=== PATIENT | female | born 2000 | race Caucasian/White ===

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

== ENCOUNTER 2022-04-12 09:24 | Inpatient (IN) | payer MEDICAID ==
[~2022-04-12 09:24] MED LIST: Bupivacaine 0.25% 10 ML SDV ONE; Lidocaine 1% 10 ML MDV ONE
[2022-04-12] MEDS ORDERED: Sodium Chloride 0.9% 10 ML Syringe FLUSH PRN (09:59)
[2022-04-12] MEDS ORDERED: Nalbuphine HCl 10 MG/ 1ML Amp IVPUSH PRN (09:59)
[2022-04-12] MEDS ORDERED: Ondansetron 4 MG/2 ML SDV IVPUSH PRN (09:59)
[2022-04-12] MEDS ORDERED: Oxytocin/Lactated Ringers 10 UNIT/1,000 ML BAG IV SCH (10:00)
[2022-04-12] MEDS: Lactated Ringers 1,000 ML IV SCH ×2 (10:53→11:52)
[2022-04-12 10:54] LABS: ESTIMATED GFR > 60 mL/min (>60)
[2022-04-12] MEDS ORDERED: Bupivacaine/fentaNYL/NS 100 ML Bag EPIDUR PRN (11:40)
[2022-04-12] MEDS ORDERED: ePHEDrine 50 MG/ML SDV IVPUSH PRN (11:40)
[2022-04-12] MEDS ORDERED: fentaNYL 100 MCG/2 ML SDV EPIDUR PRN (11:40)
[2022-04-12] MEDS ORDERED: diphenhydrAMINE 50 MG/ML SDV IVPUSH PRN (11:40)
[2022-04-12] MEDS: Labetalol 100 MG Tab PO SCH ×2 (11:55→19:05)
[2022-04-12] MEDS ORDERED: Labetalol 100 MG Tab PO SCH (15:00)
[2022-04-12] MEDS ORDERED: Benzocaine/Menthol 20%-0.5% Spray 78 GM Cannister TOP PRN (17:14)
[2022-04-12] MEDS ORDERED: Witch Hazel Medicated Pads 40/Jar TOP PRN (17:14)
[2022-04-12] MEDS ORDERED: Docusate Sodium 100 MG Cap PO PRN (17:14)
[2022-04-12] MEDS ORDERED: Acetaminophen 325 MG Tab PO PRN (17:14)
[2022-04-12] MEDS: Ibuprofen 600 MG Tab PO PRN (18:08)
[2022-04-12] MEDS ORDERED: Sodium Chloride 0.9% 10 ML Syringe FLUSH SCH (21:00)
[2022-04-13] MEDS: Ibuprofen 600 MG Tab PO PRN ×2 (03:28→10:25)
[2022-04-13] MEDS ORDERED: Prenatal Multivitamin with Calcium/Folic Acid/Iron Tab PO SCH (09:00)
[2022-04-14 09:35] VITALS: BP 131/92; PULSE 75
== END 2022-04-14 09:30 | disposition home or self-care (01) | DRG 807 ==
LOC: JD.OBCHECK 09:24 → JD.OB 09:28 → JD.OBCHECK 13:00 → OBSVTOIN 15:16 → JD.OB 15:17
PROVIDERS: ADMIT Obstetrics & Gynecology; ATTEND Obstetrics & Gynecology
PROC: 10E0XZZ Delivery of Products of Conception, External Approach (ICD-10-PCS; principal; 2022-04-12)
PROC: 3E0R3BZ Introduction of Anesthetic Agent into Spinal Canal, Percutaneous Approach (ICD-10-PCS; principal; 2022-04-12)
DX: O16.4 Unspecified maternal hypertension, complicating childbirth (principal); Z37.0 Single live birth; Z3A.38 38 weeks gestation of pregnancy; O99.214 Obesity complicating childbirth
CPT/HCPCS: 01967; 36415; 51701; 59025; 59409; 82565; 82570; 83615; 84156; 84450; 84460; 84520; 84550; 85025; 86592; A9270-GY; J3010; J3490; J7120

== ENCOUNTER 2022-04-28 23:10 | Emergency (ER) | payer MEDICAID ==
[2022-04-28 23:22] VITALS: BP 126/73; PULSE 88
== END 2022-04-29 01:16 | disposition home or self-care (01) ==
LOC: JD.ED 23:10
DX: S93.402A Sprain of unspecified ligament of left ankle, initial encounter (principal); Z88.0 Allergy status to penicillin; Z88.5 Allergy status to narcotic agent; Z88.1 Allergy status to other antibiotic agents; Z88.8 Allergy status to other drugs, medicaments and biological substances; X50.1XXA Overexertion from prolonged static or awkward postures, initial encounter
CPT/HCPCS: 73610-26-LT; 73610-LT; 73630-26-LT; 73630-LT; 99282; 99283-25

== ENCOUNTER 2023-07-04 02:59 | Inpatient (IN) | payer MEDICAID ==
[2023-07-04] MEDS: Lactated Ringers 1,000 ML IV SCH ×3 (04:00→05:42)
[2023-07-04] MEDS ORDERED: Nalbuphine 10 MG/0.5 ML Syringe IVPUSH PRN (04:06)
[2023-07-04] MEDS ORDERED: Ondansetron 4 MG/2 ML SDV IVPUSH PRN (04:06)
[2023-07-04] MEDS ORDERED: Lidocaine 1% 50 ML MDV INJECT PRN (04:06)
[2023-07-04] MEDS ORDERED: Sodium Chloride 0.9% 10 ML Syringe FLUSH PRN (04:06)
[2023-07-04] MEDS ORDERED: Oxytocin/Lactated Ringers 10 UNIT/1,000 ML BAG IV SCH (04:15)
[2023-07-04 04:16] LABS: BASOPHILS ABSOLUTE AUTO 0.04 K/mm3 (0.01-0.08); BASOPHILS PERCENT AUTO 0.2 % (0.1-1.2); EOSINOPHILS ABSOLUTE AUTO 0.32 K/mm3 (0.04-0.36); EOSINOPHILS PERCENT AUTO 1.9 (0.7-5.8); HEMATOCRIT 38.4 % (34.1-44.9); HEMOGLOBIN 12.7 gm/dl (11.2-15.7); IMMATURE GRAN ABSOLUTE AUTO 0.08 K/mm3 (0.00-0.10); IMMATURE GRAN PERCENT AUTO 0.5 % (<=1.0); LYMPHOCYTES ABSOLUTE AUTO 2.78 K/mm3 (1.18-3.74); LYMPHOCYTES PERCENT AUTO 16.4 % (19.3-51.7); MEAN CORPUSCULAR HGB CONC 33.1 g/dl (32.2-35.5); MEAN CORPUSCULAR VOLUME 90.8 fl (79.4-94.8); MEAN PLATELET VOLUME 12.8 fl (9.4-12.3); MONOCYTES PERCENT AUTO 8.3 % (4.7-12.5); NEUTROPHILS ABSOLUTE AUTO 12.29 K/mm3 (1.56-6.13); NEUTROPHILS PERCENT AUTO 72.7 % (34.0-71.1); PLATELET COUNT,PLT 156 K/mm3 (182-369); RED BLOOD CELL COUNT 4.23 M/mm3 (3.98-5.22); WHITE BLOOD CELL COUNT,WBC 16.91 K/mm3 (3.98-10.04)
[2023-07-04] MEDS ORDERED: Clindamycin Phosphate in D5W 900 MG in Premix Bag 1 BAG IV SCH ×2 (04:30)
[2023-07-04] MEDS ORDERED: ePHEDrine 50 MG/ML SDV IVPUSH PRN (04:37)
[2023-07-04] MEDS ORDERED: fentaNYL 100 MCG/2 ML SDV EPIDUR PRN (04:37)
[2023-07-04] MEDS ORDERED: diphenhydrAMINE 50 MG/ML SDV IVPUSH PRN (04:37)
[2023-07-04] MEDS ORDERED: Bupivacaine/fentaNYL/NS 100 ML Bag EPIDUR PRN (04:37)
[2023-07-04] MEDS ORDERED: fentaNYL 100 MCG/2 ML SDV ONE (04:39)
[2023-07-04] MEDS ORDERED: Bupivacaine 0.25% 10 ML SDV ONE (06:00)
[2023-07-04] MEDS ORDERED: Lidocaine 1% 10 ML MDV ONE (06:00)
[2023-07-04] MEDS ORDERED: Benzocaine/Menthol 20%-0.5% Spray 78 GM Cannister TOP PRN (07:33)
[2023-07-04] MEDS ORDERED: Witch Hazel Medicated Pads 40/Jar TOP PRN (07:33)
[2023-07-04] MEDS ORDERED: Sodium Chloride 0.9% 10 ML Syringe FLUSH SCH (09:00)
[2023-07-04] MEDS: Ibuprofen 600 MG Tab PO SCH ×4 (10:46→21:55)
[2023-07-04] MEDS: Acetaminophen 325 MG Tab PO PRN (21:54)
[2023-07-04 23:17] LABS: GROUP B STREP BY PCR NEGATIVE (NEGATIVE)
[2023-07-05] MEDS: Acetaminophen 325 MG Tab PO PRN (04:40)
[2023-07-05] MEDS: Ibuprofen 600 MG Tab PO SCH ×3 (04:41→17:29)
[2023-07-05] MEDS: Ibuprofen 600 MG Tab PO PRN (19:05)
[2023-07-06] MEDS: Ibuprofen 600 MG Tab PO PRN (03:22)
[2023-07-06 09:57] VITALS: BP 115/84; PULSE 96
== END 2023-07-06 10:15 | disposition home or self-care (01) | DRG 807 ==
LOC: JD.OBCHECK 02:59 → JD.OB 03:02 → JD.OBCHECK 03:50 → JD.OB 03:50 → OBSVTOIN 07:13 → JD.OB 07:14
PROVIDERS: ADMIT Obstetrics & Gynecology; ATTEND Obstetrics & Gynecology
PROC: 10E0XZZ Delivery of Products of Conception, External Approach (ICD-10-PCS; principal; 2023-07-04)
PROC: 3E0R3BZ Introduction of Anesthetic Agent into Spinal Canal, Percutaneous Approach (ICD-10-PCS; 2023-07-04)
PROC: 00HU33Z Insertion of Infusion Device into Spinal Canal, Percutaneous Approach (ICD-10-PCS; 2023-07-04)
DX: O60.14X0 Preterm labor third trimester with preterm delivery third trimester, not applicable or unspecified (principal); Z37.0 Single live birth; O70.0 First degree perineal laceration during delivery; O99.344 Other mental disorders complicating childbirth; F41.9 Anxiety disorder, unspecified; F32.A Depression, unspecified; O99.52 Diseases of the respiratory system complicating childbirth; Z3A.36 36 weeks gestation of pregnancy; Z88.1 Allergy status to other antibiotic agents; Z88.5 Allergy status to narcotic agent; Z88.0 Allergy status to penicillin; Z91.09 Other allergy status, other than to drugs and biological substances; J45.909 Unspecified asthma, uncomplicated; Z90.89 Acquired absence of other organs; Z79.899 Other long term (current) drug therapy; Z79.82 Long term (current) use of aspirin
CPT/HCPCS: 01967; 36415; 51701; 59025; 59409; 85025; 86592; 87653; A9270-GY; J2405; J2590; J3010; J3490; J7120

== ENCOUNTER 2024-07-05 09:42 | Emergency (ER) | payer SELFPAY ==
[2024-07-05 09:51] VITALS: BP 159/83; PULSE 135
[2024-07-05 10:29] LABS: BASOPHILS ABSOLUTE AUTO 0.1 K/mm3 (0.0-0.2); BASOPHILS PERCENT AUTO 0.6 % (0.0-1.0); EOSINOPHILS PERCENT AUTO 0.1 % (0.0-6.0); HEMATOCRIT 46.1 % (37.0-47.0); HEMOGLOBIN 15.1 gm/dl (12.0-16.0); IMMATURE GRAN ABSOLUTE AUTO 0.04 K/mm3 (0.00-0.05); IMMATURE GRAN PERCENT AUTO 0.4 % (0.0-0.4); LYMPHOCYTES ABSOLUTE AUTO 1.3 K/mm3 (1.0-4.8); LYMPHOCYTES PERCENT AUTO 12.9 % (24.0-44.0); MEAN CORPUSCULAR HGB CONC 32.8 g/dl (32.0-36.0); MEAN CORPUSCULAR VOLUME 91.5 fl (83.0-99.0); MONOCYTES ABSOLUTE AUTO 0.6 K/mm3 (0.0-0.8); MONOCYTES PERCENT AUTO 6.1 % (0.0-8.0); NEUTROPHILS ABSOLUTE AUTO 8.1 K/mm3 (1.8-7.7); NEUTROPHILS PERCENT AUTO 79.9 % (41.0-71.0); PLATELET COUNT,PLT 181 K/mm3 (150-400); RED BLOOD CELL COUNT 5.04 M/mm3 (4.10-5.30); WHITE BLOOD CELL COUNT,WBC 10.08 K/mm3 (3.9-11.3)
[2024-07-05 10:52] LABS: BARBITURATE SCREEN,URINE NEGATIVE (CUTOFF=200); BENZODIAZEPINES SCREEN,URINE NEGATIVE (CUTOFF=150); BUPRENORPHINE SCREEN,URINE NEGATIVE (CUTOFF=10); METHADONE SCREEN, URINE NEGATIVE (CUTOFF=200); METHAMPHETAMINES SCREEN, URINE NEGATIVE (CUTOFF=500); OXYCODONE SCREEN,URINE NEGATIVE (CUT0FF=100); THC SCREEN,URINE 20 NG/ML PRESUMPTIVE POSITIVE (CUTOFF=50)
[2024-07-05 10:58] LABS: A/G RATIO 1.3 (1-2); ALBUMIN 4.5 g/dl (3.4-5.0); ANION GAP 19.9 (5-15); BILIRUBIN TOTAL 0.9 mg/dL (0.2-1.0); BUN/CREATININE RATIO 17.1 (14-18); CALCIUM 9.6 mg/dL (8.5-10.1); CREATININE 0.7 mg/dL (0.55-1.02); EST CRCL DRUG DOSING (CG) 119.01 mL/min; POTASSIUM,K 3.9 mEq/L (3.5-5.1); PROTEIN TOTAL,TP 8.1 g/dl (6.4-8.2); TSH 0.747 uIU/mL (0.358-3.74)
[2024-07-05 10:58] LABS: AMPHETAMINES SCREEN, URINE NEGATIVE (CUTOFF=500)
== END 2024-07-05 12:51 | disposition home or self-care (01) ==
LOC: JD.ED 09:42
DX: F32.A Depression, unspecified (principal); F17.210 Nicotine dependence, cigarettes, uncomplicated; E66.9 Obesity, unspecified; Z86.16 Personal history of COVID-19; Z88.8 Allergy status to other drugs, medicaments and biological substances; Z88.0 Allergy status to penicillin; Z88.5 Allergy status to narcotic agent; Z88.1 Allergy status to other antibiotic agents
CPT/HCPCS: 36415; 80053; 80143; 80179; 80306; 80307; 84443; 85025; 99283